=== PATIENT | female | born 1950 | race Caucasian/White ===

== ENCOUNTER → 2017-06-20 | Day surgery (SDC) | payer MEDICARE ==
[~2017-06-20] VITALS: Ht 170.2 cm; Wt 77.0 kg
[~2017-06-20] MED LIST: BUPIVACAINE HCL PF 0.25% 30 ML VIAL INFIL ONE; CEPH-459 PO; CHLORHEXIDINE GLUCONATE 2 % 1 PACK (2 CLOTHS) TOPICAL PRN; HYDR-3288 PO; LACTATED RINGER'S 1000 ML IV PRN; LIDOCAINE HCL 2% 50 ML VIAL ONE; METOPROLOL TARTRATE 25 MG TAB PO PRN; MIDAZOLAM HCL 2 MG/2 ML VIAL ONE; NEOMYCIN/POLYMYXIN 1 ML G.U. IRRIGANT ONE; POVIDONE IODINE 5% (ANTISEPSIS KIT) 4 APPLICATIONS EACH NARE PRN; SODIUM CHLORID 0.9% 500 ML IV PRN; ceFAZolin 1,000 MG/NS 100 ML IV SCH
[2017-06-20 09:40] VITALS: BP 120/80; PULSE 72; RESP 16; TEMP 98; O2SAT 98
--- NOTE | 2017-06-20 09:44 | MP ---
cc: Adrian Jones MD DATE OF OPERATION: 06/20/2017 DATE OF OPERATION: 06/20/2017 PREOPERATIVE DIAGNOSIS: Right middle finger mass. POSTOPERATIVE DIAGNOSIS: Right middle finger mass. PROCEDURE PERFORMED: Right middle finger mass excisional biopsy. SURGEON: Adrian Jones MD DESCRIPTION OF PROCEDURE: The patient was brought to the operating room, and placed supine on the operating table. After the correct site and side of surgery were verified by members of each team in the room multiple times including the patient and myself and after adequate preoperative markings, appropriate written consent was verified by everyone and after adequate preoperative timeout was performed to everyone's satisfaction, and after adequate IV sedation had been achieved, her right upper extremity was prepped and draped in traditional sterile surgical fashion. A 50:50 mixture of 2% plain lidocaine and 0.25% plain Marcaine was infiltrated into the skin and subcutaneous tissue over the mass. The limb was exsanguinated using a gentle Will wrap and highly placed well-padded axillary tourniquet which was inflated to 200 mmHg for approximately 15 minutes. A transversely oriented incision within the skin crease dorsally over the PIP joint and the mass was performed, brought down through the skin and subcutaneous tissue, where blunt dissection was then performed. Bipolar electrocautery was used as needed. A small 1 cm fibrous mass was identified and dissected free from the surrounding tissues. It was superficial to the joint and outside of it. There was involvement of 20% of the lateral aspect of the extensor mechanism, which remained largely completely intact. The mass was dissected free as a whole and was easily isolated and passed off the field as a specimen. There was no evidence of any tracking into the joint. There is no evidence of any joint capsular injury. Thorough irrigation was performed. There were no other anatomic abnormalities identified. There was no sign of any other possible foreign body. There was no discontinuity of the extensor tendon. The tissues were abraded slightly with a curette. Thorough irrigation was performed. The skin edges were reapproximated using a running 5-0 nylon suture. The hand was thoroughly cleansed and dried. Betadine, Adaptic dressing was applied on top of the wound followed by a bulky soft dressing. The axillary tourniquet was released and the hand and all fingers became immediately soft, pink and warm, and had brisk capillary refill pf less than 2 seconds. The patient was awakened from anesthesia and transported to the postanesthesia care unit. Sponge, needle and instrument counts were correct at the end of the case as reported by nurses in the room. MD CEDRIC Gurrola/GURPREET , 09:19 AM , 09:43 AM
--- NOTE | 2017-06-20 13:30 | EKG ---
Date Performed: 06/20/2017 Time Performed: 07:15:41 PTAGE: 67 years EKG: Sinus rhythm NORMAL ECG NO PREVIOUS TRACING DOCTOR: Roger Dowling Interpretating Date/Time 06/20/2017 13:26:53
== END | disposition home or self-care (01) ==
LOC: PHSDC 06:05
PROVIDERS: ATTEND Orthopaedic Surgery Hand Surgery
DX: R22.31 Localized swelling, mass and lump, right upper limb (principal); Z01.810 Encounter for preprocedural cardiovascular examination
CPT/HCPCS: 01810; 26160; 88304; 88311; 93005; J0690; J2250; J3010; J7120; 88305